=== PATIENT | male | born 1970 | race Caucasian/White ===

== ENCOUNTER 2019-05-02 07:34 | Day surgery (SDC) | payer OTHER ==
[2019-05-02] MEDS ORDERED: MARCAINE-EPI 0.5%-1:200,000 INFILTRATI ONE ×2 (08:32→10:35)
[2019-05-02] MEDS ORDERED: DIPRIVAN 10 MG/ML IV ONE (08:35)
[2019-05-02] MEDS ORDERED: XYLOCAINE MPF 2% ONE (08:35)
[2019-05-02] MEDS ORDERED: SUBLIMAZE ONE (08:36)
[2019-05-02] MEDS ORDERED: NACL 0.9% 1000 ML 1,000 ML IV SCH (08:53)
--- NOTE | 2019-05-02 08:53 | Anesthesia Consultation ---
Anesthesia Consult and Med Hx Date of service: 05/02/19 - Airway Anesthetic Teeth Evaluation: Good ROM Head & Neck: Adequate Mental/Hyoid Distance: Adequate Mallampati Class: Class II Intubation Access Assessment: Good - Pulmonary Exam CTA: Yes - Cardiac Exam Cardiac Exam: RRR - Pre-Operative Health Status ASA Pre-Surgery Classification: ASA3 Proposed Anesthetic Plan: MAC (ASA 3 hx HTN, DM, CABG has cardiac clearance on chart ) - Pulmonary Hx Smoking: No Hx Asthma: No COPD: No Hx Pneumonia: No Hx Sleep Apnea: No (PRESCREEN HIGH) - Cardiovascular System Hx Hypertension: Yes Hx Coronary Artery Disease: Yes (s/p CABG x1 in 2013) Hx Heart Attack/AMI: Yes Hx Angina: No Hx Cardia Arrhythmia: No - Central Nervous System CVA: No Hx Back Pain: Yes (LOWER BACK) Hx Psychiatric Problems: No - Gastrointestinal Hx Gastroesophageal Reflux Disease: Yes (Mild, on Ranitidine) - Endocrine Hx Renal Disease: No Hx End Stage Renal Disease: No 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
[2019-05-02] MEDS ORDERED: ZOFRAN IV PRN (08:54)
[2019-05-02] MEDS ORDERED: DILAUDID IV PRN (08:54)
--- NOTE | 2019-05-02 08:54 | Anesthesia Day of Surgery ---
Anesthesia Day of Surgery - Day of Surgery Patient Examined: Yes Patient H&P Reviewed: Yes Patient is NPO: Yes
[2019-05-02] MEDS ORDERED: VANCOMYCIN/NS 1 GM/250 ML 1 GM/250 ML BAG IV NR (09:00)
[2019-05-02] MEDS ORDERED: VANCOMYCIN 1,250 MG in NACL 0.9% 250ML 250 ML IV SCH (09:00)
[2019-05-02] MEDS ORDERED: HumuLIN R IV ONE ×2 (09:30→12:46)
[2019-05-02] MEDS ORDERED: NACL 0.9% IR ONE (10:35)
[2019-05-02] MEDS ORDERED: ZEMURON IV ONE (10:46)
[2019-05-02] MEDS ORDERED: TORADOL ONE ×2 (10:47→11:02)
[2019-05-02] MEDS ORDERED: ROBINUL ONE (11:02)
[2019-05-02] MEDS ORDERED: BLOXIVERZ ONE (11:02)
[2019-05-02] MEDS ORDERED: ZOFRAN ONE (11:03)
[2019-05-02] MEDS ORDERED: DECADRON ONE (11:03)
--- NOTE | 2019-05-02 11:05 | Discharge Summary ---
Short Stay Discharge Plan Activity: other (january d/c when stable. home health care d/c packing Fri am. irrigated wd with 50% H202/NS [place]. pack with mesalt qd.) Diet: regular Wound: per wound nurse instructions Additional Instructions: aleve I po q 6-8 hrs prn for breakthrough pain Follow up with: SRIRAM SPAIN MD [Staff Physician] - 05/09/19
[2019-05-02] MEDS ORDERED: HumuLIN R IV NR (11:16)
--- NOTE | 2019-05-02 11:35 | Operative Report ---
PREOPERATIVE DIAGNOSIS: Rule out infected nodule of upper back. POSTOPERATIVE DIAGNOSIS: Probably large infected sebaceous cyst of upper back, pending final pathology. PROCEDURE: Excision and packing of aforementioned infected nodule. SURGEON: Tang De La O MD ANESTHESIA: General. ESTIMATED BLOOD LOSS: Minimal. DRAINS: No drains. COMPLICATIONS: No complications. CULTURES: Aerobic and anaerobic cultures were also taken of the purulence noted during dissection. PROCEDURE IN DETAIL: The patient was taken to the operating room and placed in prone position, prepped and draped in usual sterile fashion. The erythematous, indurated nodule had been outlined with a marking pencil. A 15 blade was used to incise skin and subcutaneous tissue. Double skin hooks, Vero retractors, and subsequently [place] were used to retract the skin. Needle tip electrocautery was used to dissect down to the capsule. A sharp and blunt dissection as well as electrocautery was used to dissect the entire nodule including capsule. The nodule was quite extensive and extended deep down the subcutaneous to the muscle fascia, but did not include the muscle fascia. During dissection, some purulence was noted. Aerobic and anaerobic cultures were taken. The entire mass was removed en bloc. The area was irrigated copiously and dried. Hemostasis obtained with electrocautery. Once again, the area irrigated copiously and dried. Checked for hemostasis and noted to be dry. A 0.5% Marcaine with epinephrine was infiltrated over the entire area for postoperative pain relief. The abscess cavity was packed with 2-inch iodoform gauze. Fluffs and pressure dressings applied. The patient tolerated the procedure well and left the OR in stable condition. JOB# [id number] FP/TOÑA
[2019-05-02] MEDS ORDERED: NORCO 5/325 PO PRN (13:00)
--- NOTE | 2019-05-02 13:49 | Post Anesthesia Evaluation ---
- Post Anesthesia Evaluation Patient Participated: Yes Airway Patent: Yes Stable Respiratory Function: Yes Nausea/Vomiting: No Temp > 96.8F: Yes Pain Manageable: Yes Adequeate Hydration: Yes Anesthesia Complications: No Block Receding Appropriately: Not Applicable Patient on Ventilator: No
[2019-05-02 14:03] VITALS: BP 127/72
== END 2019-05-02 07:35 | disposition home or self-care (01) ==
LOC: OR 07:34
PROVIDERS: ATTEND Surgery
DX: L72.3 Sebaceous cyst (principal); L98.8 Other specified disorders of the skin and subcutaneous tissue; I25.10 Atherosclerotic heart disease of native coronary artery without angina pectoris; I10 Essential (primary) hypertension; E11.9 Type 2 diabetes mellitus without complications; E78.5 Hyperlipidemia, unspecified; K21.9 Gastro-esophageal reflux disease without esophagitis; E66.9 Obesity, unspecified; F41.9 Anxiety disorder, unspecified; Z83.3 Family history of diabetes mellitus; Z98.890 Other specified postprocedural states; Z79.899 Other long term (current) drug therapy; Z90.49 Acquired absence of other specified parts of digestive tract; Z88.0 Allergy status to penicillin; Z79.82 Long term (current) use of aspirin; Z79.4 Long term (current) use of insulin; Z84.89 Family history of other specified conditions; Z95.1 Presence of aortocoronary bypass graft; Z98.41 Cataract extraction status, right eye; Z98.42 Cataract extraction status, left eye; Z68.35 Body mass index [BMI] 35.0-35.9, adult; Z86.2 Personal history of diseases of the blood and blood-forming organs and certain disorders involving the immune mechanism
CPT/HCPCS: 11406; 82962; 87075; 87116; 88304; 88312; 88341; 88342; J1100; J1885; J2405; J2704; J2710; J3010; J3370; J7030; J7050; 88307; J1815